=== PATIENT | female | born 1960 | race Caucasian/White ===

== ENCOUNTER 2022-02-14 13:34 | Emergency (ER) | payer OTHER ==
[~2022-02-14] VITALS: Ht 162.6 cm; Wt 65.8 kg
[~2022-02-14 13:34] MED LIST: ACIDOPHILUS1 EAC3 PO
== END 2022-02-14 14:00 | disposition home or self-care (01) ==
LOC: ER 13:34 → EDBD 13:40 → ER 14:00
DX: U07.1 COVID-19 (principal)

== ENCOUNTER 2023-06-08 10:01 | Emergency (ER) | payer OTHER ==
[~2023-06-08] VITALS: Ht 165.1 cm; Wt 65.8 kg
== END 2023-06-08 16:30 | disposition home or self-care (01) ==
LOC: ER 10:01
DX: K58.9 Irritable bowel syndrome, unspecified (principal); R10.9 Unspecified abdominal pain; Z87.19 Personal history of other diseases of the digestive system
CPT/HCPCS: 36415; 96365; 96372; 99284; J2250; J3490; J7030

== ENCOUNTER 2023-06-27 11:54 | Emergency (ER) | payer OTHER ==
[~2023-06-27] VITALS: Ht 162.6 cm; Wt 65.8 kg
== END 2023-06-27 19:52 | disposition home or self-care (01) ==
LOC: ER 11:54
PROVIDERS: General Practice
DX: N95.2 Postmenopausal atrophic vaginitis (principal); R10.84 Generalized abdominal pain; N39.0 Urinary tract infection, site not specified
CPT/HCPCS: 36415; 74176; 96365; 96366; 99283; J7030

== ENCOUNTER 2023-08-30 10:37 | Emergency (ER) | payer OTHER ==
[~2023-08-30] VITALS: Ht 162.6 cm; Wt 67.1 kg
[2023-08-30 11:29] LABS: HEMATOCRIT 43.9 % (36.0-45.00); HEMOGLOBIN 14.1 g/dL (12.0-15.00); MEAN CELL VOLUME 87.5 fL (80.00-100.00); MEAN CORPUSCULAR HEMOGLOBIN 28.2 pg (27.00-32.0); MEAN CORPUSCULAR HGB CONC 32.2 g/dl (32.0-36.0); PLATELET COUNT 269 K/uL (150-450); RED BLOOD COUNT 5.02 M/uL (4.00-6.00); RED CELL DISTRIBUTION WIDTH 13.7 % (11.5-14.5)
[2023-08-30 11:38] LABS: PH,URINE 5.5 (5.0-8.0); URINE APPEARANCE Clear; URINE BILIRRUBIN Negative (NEGATIVE); URINE BLOOD Moderate; URINE COLOR Yellow; URINE GLUCOSE Negative (NEGATIVE); URINE LEUKOCYTE Trace; URINE NITRATE Negative; URINE PROTEIN Negative (NEGATIVE)
[2023-08-30 11:41] LABS: URINE EPITHELIAL CELLS 6.3 uL (0.0-38.8); URINE WBC 16.5 uL (0.0-23.2)
[2023-08-30 11:45] LABS: URINE BACTERIA > 9821.5 uL (0.0-1933)
[2023-08-30 12:03] LABS: CALCIUM 9.1 mg/dL (8.5-10.1); CREATININE SERUM 0.74 mg/dL (0.55-1.02); GFR 78.76; POTASSIUM 4.06 mEq/L (3.5-5.1)
[2023-08-30] MEDS ORDERED: CIPRO500 MG PO (13:58)
[2023-08-30] MEDS ORDERED: NAPROXEN500 MG PO (13:59)
== END 2023-08-30 14:18 | disposition home or self-care (01) ==
LOC: ER 10:37
PROVIDERS: General Practice
DX: R10.9 Unspecified abdominal pain (principal); R30.0 Dysuria; E78.00 Pure hypercholesterolemia, unspecified
CPT/HCPCS: 96372; 99284; J1885

== ENCOUNTER 2024-05-28 12:48 | Emergency (ER) | payer OTHER ==
[~2024-05-28] VITALS: Ht 162.6 cm; Wt 67.1 kg
[~2024-05-28 12:48] MED LIST changes: +CIPRO500 MG PO; +NAPROXEN500 MG PO
[2024-05-28] MEDS ORDERED: RINGERS SOLUTION,LACTATED 1,000 ML IV STA (16:17)
[2024-05-28] MEDS ORDERED: HYOSCYAMINE SULFATE 0.125 MG TAB.SUBL SL STA (16:18)
[2024-05-28] MEDS ORDERED: KETOROLAC TROMETHAMINE 30 MG VIAL IV STA ×2 (16:20→18:58)
[2024-05-28] MEDS ORDERED: KETOROLAC TROMETHAMINE 30 MG VIAL ONE (16:24)
[2024-05-28] MEDS ORDERED: HYOSCYAMINE SULFATE 0.125 MG TAB.SUBL ONE (16:25)
[2024-05-28 16:46] LABS: HEMATOCRIT 46.4 % (36.0-45.00); HEMOGLOBIN 15.6 g/dL (12.0-15.00); MEAN CELL VOLUME 86.7 fL (80.00-100.00); MEAN CORPUSCULAR HEMOGLOBIN 29.1 pg (27.00-32.0); MEAN CORPUSCULAR HGB CONC 33.6 g/dl (32.0-36.0); PLATELET COUNT 273 K/uL (150-450); RED BLOOD COUNT 5.35 M/uL (4.00-6.00); RED CELL DISTRIBUTION WIDTH 13.8 % (11.5-14.5)
[2024-05-28 17:09] LABS: CALCIUM 9.7 mg/dL (8.5-10.1); CREATININE SERUM 0.79 mg/dL (0.55-1.02); GFR 72.81; POTASSIUM 4.08 mEq/L (3.5-5.1)
[2024-05-28] MEDS ORDERED: METOCLOPRAMIDE HCL 5 MG/ML VIAL IM STA (18:55)
[2024-05-28] MEDS ORDERED: RINGERS SOLUTION,LACTATED 500 ML IV STA (18:56)
[2024-05-28] MEDS ORDERED: ONDANSETRON HCL 2 MG/ML VIAL IV STA (18:57)
[2024-05-28] MEDS ORDERED: FAMOtidine 10 MG/ML (4ML VIAL) IV PUSH STA (18:57)
[2024-05-28] MEDS ORDERED: HYOSCYAMINE SULFATE 0.125 MG TAB.SUBL SL ONE (19:00)
== END 2024-05-28 19:36 | disposition home or self-care (01) ==
LOC: ER 12:50
DX: K59.01 Slow transit constipation (principal)

== ENCOUNTER 2024-05-31 12:48 | Emergency (ER) | payer OTHER ==
[~2024-05-31] VITALS: Ht 162.6 cm; Wt 67.1 kg
[2024-05-31] MEDS ORDERED: SUCRALFATE 1 G TABLET PO ONE (14:45)
[2024-05-31] MEDS ORDERED: FAMOTIDINE/PF 20 MG/2 ML VIAL IV ONE (14:45)
[2024-05-31] MEDS ORDERED: 0.9 % SODIUM CHLORIDE 500 ML IV ONE (14:45)
[2024-05-31] MEDS ORDERED: ONDANSETRON HCL 2 MG/ML VIAL IV ONE (14:45)
[2024-05-31] MEDS ORDERED: ONDANSETRON HCL 2 MG/ML VIAL ONE (15:10)
[2024-05-31] MEDS ORDERED: FAMOTIDINE/PF 20 MG/2 ML VIAL ONE (15:11)
[2024-05-31 15:14] LABS: HEMATOCRIT 43.8 % (36.0-45.00); MEAN CELL VOLUME 86.4 fL (80.00-100.00); MEAN CORPUSCULAR HEMOGLOBIN 29.5 pg (27.00-32.0); MEAN CORPUSCULAR HGB CONC 34.1 g/dl (32.0-36.0); PLATELET COUNT 259 K/uL (150-450); RED BLOOD COUNT 5.07 M/uL (4.00-6.00); RED CELL DISTRIBUTION WIDTH 13.4 % (11.5-14.5)
[2024-05-31 15:17] LABS: PH,URINE 5.5 (5.0-8.0); URINE APPEARANCE Clear; URINE BILIRRUBIN Negative (NEGATIVE); URINE BLOOD Moderate; URINE COLOR Yellow; URINE GLUCOSE Negative (NEGATIVE); URINE LEUKOCYTE Negative; URINE NITRATE Negative; URINE PROTEIN Trace (NEGATIVE)
[2024-05-31 15:21] LABS: URINE BACTERIA 2291.7 uL (0.0-1933); URINE CAST 3.66 uL (0.0-1.40); URINE EPITHELIAL CELLS 8.3 uL (0.0-38.8); URINE RBC 67.7 uL (0.0-20.8); URINE WBC 6.8 uL (0.0-23.2)
[2024-05-31 15:40] LABS: URINE CRYSTALS FEW /HPF; URINE KETONE 80 (NEGATIVE)
[2024-05-31 15:41] LABS: URINE MUCUS MODERATE
[2024-05-31 16:00] LABS: BILIRUBIN TOTAL 1.29 mg/dL (0.3-1.2); CALCIUM 9.6 mg/dL (8.5-10.1); CREATININE SERUM 0.87 mg/dL (0.55-1.02); GFR 65.14; GLOBULINA 3.7 G/DL (2.4-3.5); POTASSIUM 3.94 mEq/L (3.5-5.1); TOTAL PROTEIN 7.7 gm/dL (6.4-8.2)
[2024-05-31] MEDS ORDERED: MACROBID 100 M100 MG PO (16:51)
[2024-05-31] MEDS ORDERED: KETOROLAC TROMETHAMINE 30 MG VIAL ONE (16:58)
[2024-05-31] MEDS ORDERED: KETOROLAC TROMETHAMINE 30 MG VIAL IV ONE (17:00)
== END 2024-05-31 17:05 ==
LOC: ER 12:48
PROVIDERS: Nurse Practitioner Family
DX: N20.1 Calculus of ureter (principal); R10.32 Left lower quadrant pain; R10.9 Unspecified abdominal pain
CPT/HCPCS: 36415; 74176; 96365; 96366; 99284; J1885; J2405; J3490; J7042

== ENCOUNTER 2024-09-10 08:27 | Emergency (ER) | payer OTHER ==
[~2024-09-10] VITALS: Ht 162.6 cm; Wt 59.0 kg
[~2024-09-10 08:27] MED LIST changes: +MACROBID 100 M100 MG PO
[2024-09-10] MEDS ORDERED: BUSPIRONE HCL7.5 MG PO (08:32)
[2024-09-10] MEDS ORDERED: MIRTAZAPINE15 M1 PO (08:32)
[2024-09-10] MEDS ORDERED: KETOROLAC TROMETHAMINE 60 MG VIAL IM STA (09:07)
[2024-09-10 10:06] LABS: HEMATOCRIT 41.2 % (36.0-45.00); HEMOGLOBIN 13.8 g/dL (12.0-15.00); MEAN CELL VOLUME 87.4 fL (80.00-100.00); MEAN CORPUSCULAR HEMOGLOBIN 29.4 pg (27.00-32.0); MEAN CORPUSCULAR HGB CONC 33.6 g/dl (32.0-36.0); PLATELET COUNT 248 K/uL (150-450); RED BLOOD COUNT 4.71 M/uL (4.00-6.00); RED CELL DISTRIBUTION WIDTH 13.9 % (11.5-14.5)
[2024-09-10] MEDS ORDERED: ONDANSETRON HCL 2 MG/ML VIAL IV STA (10:10)
[2024-09-10 10:21] LABS: URINE APPEARANCE Turbid; URINE BILIRRUBIN Negative (NEGATIVE); URINE BLOOD Large; URINE COLOR Yellow; URINE GLUCOSE Negative (NEGATIVE); URINE LEUKOCYTE Large; URINE NITRATE Positive; URINE PROTEIN Trace (NEGATIVE)
[2024-09-10 10:46] LABS: URINE KETONE 40 (NEGATIVE)
[2024-09-10 10:47] LABS: URINE BACTERIA > 9821.2 uL (0.0-1933); URINE CAST 5.19 uL (0.0-1.40); URINE EPITHELIAL CELLS 15.4 uL (0.0-38.8)
[2024-09-10 10:47] LABS: CALCIUM 9.8 mg/dL (8.5-10.1); CREATININE SERUM 0.76 mg/dL (0.55-1.02); GFR 76.14; POTASSIUM 5.02 mEq/L (3.5-5.1)
[2024-09-10 10:48] LABS: URINE WBC 2826.9 uL (0.0-23.2)
== END 2024-09-10 11:29 | disposition home or self-care (01) ==
LOC: ER 08:28
PROVIDERS: General Practice
DX: R10.9 Unspecified abdominal pain (principal); F41.8 Other specified anxiety disorders; Z87.442 Personal history of urinary calculi; N39.0 Urinary tract infection, site not specified; N20.0 Calculus of kidney
CPT/HCPCS: 36415; 96365; 96372; 99284; J1885; J2405